=== PATIENT | male | born 1945 | race Caucasian/White ===

== ENCOUNTER 2017-08-15 12:18 | Inpatient (IN) | payer MEDICARE, OTHER ==
[2017-08-15] MEDS ORDERED: ASPIRIN 81 MG TABLET, CHEWABLE PO ONE (12:44)
[2017-08-15 13:07] LABS: ABSOLUTE BASOPHILS # (AUTO) 0.1 10^3/uL (0.0-0.2); ABSOLUTE EOSINOPHILS # (AUTO) 0.2 10^3/uL (0.0-0.6); ABSOLUTE LYMPHOCYTES (AUTO) 2.2 10^3/uL (0.5-4.7); EOSINOPHILS % (AUTO) 1.5 % (0-6); HEMATOCRIT 44.7 % (37.9-51.0); MEAN CORPUSCULAR HEMOGLOBIN 31.5 pg (27.0-33.4); MEAN CORPUSCULAR HGB CONC 35.8 g/dL (32.0-36.0); MEAN CORPUSCULAR VOLUME 88 fl (80-97); MONOCYTES % (AUTO) 6.7 % (3-13); PLATELET COUNT 308 10^3/uL (150-450); RED BLOOD COUNT 5.08 10^6/uL (4.35-5.55); RED CELL DISTRIBUTION WIDTH 12.5 % (11.5-14.0); SEGMENTED NEUTROPHILS % (AUTO) 75.8 % (42-78); TOTAL CELLS COUNTED % (AUTO) 100 %; WHITE BLOOD COUNT 14.5 10^3/uL (4.0-10.5)
[2017-08-15 13:24] LABS: ALANINE AMINOTRANSFERASE 31 U/L (21-72); ALBUMIN 4.5 g/dL (3.5-5.0); ALKALINE PHOSPHATASE 71 U/L (38-126); ANION GAP 12 (5-19); ASPARTATE AMINO TRANSFERASE 24 U/L (17-59); BILIRUBIN,DIRECT 0.3 mg/dL (0.0-0.4); BLOOD UREA NITROGEN 14 mg/dL (7-20); CALCIUM 10.4 mg/dL (8.4-10.2); CARBON DIOXIDE 24 mmol/L (22-30); CHLORIDE 95 mmol/L (98-107); CREATINE KINASE 57 U/L (55-170); GLUCOSE 125 mg/dL (75-110); POTASSIUM 4.2 mmol/L (3.6-5.0); SODIUM 130.8 mmol/L (137-145); TOTAL PROTEIN 7.1 g/dL (6.3-8.2)
[2017-08-15 13:36] LABS: CREATINE KINASE MB 1.51 ng/mL (<4.55)
--- NOTE | 2017-08-15 13:36 | RADIOLOGY REPORT (SQ) ---
EXAM DESCRIPTION: CHEST SINGLE VIEW COMPLETED DATE/TIME: 08/15/2017 1:26 pm REASON FOR STUDY: palpitations COMPARISON: None. EXAM PARAMETERS: NUMBER OF VIEWS: One view. TECHNIQUE: Single frontal radiographic view of the chest acquired. RADIATION DOSE: NA LIMITATIONS: None. FINDINGS: LUNGS AND PLEURA: No opacities, masses or pneumothorax. No pleural effusion. MEDIASTINUM AND HILAR STRUCTURES: No masses. Contour normal. HEART AND VASCULAR STRUCTURES: Heart normal in size. Normal vasculature. BONES: No acute findings. HARDWARE: None in the chest. OTHER: No other significant finding. IMPRESSION: NO ACUTE RADIOGRAPHIC FINDING IN THE CHEST. TECHNICAL DOCUMENTATION: JOB ID: [id number] [employer]- All Rights Reserved
[2017-08-15 13:37] LABS: TROPONIN I < 0.012 ng/mL
[2017-08-15] MEDS ORDERED: DILTIAZEM HCL INJ 25 MG/5 ML VIAL IV ONE (13:51)
[2017-08-15 14:34] LABS: APPEARANCE,URINE CLEAR; BILIRUBIN,URINE NEGATIVE (NEGATIVE); COLOR,URINE STRAW; GLUCOSE, URINE NEGATIVE (NEGATIVE); KETONES,URINE NEGATIVE (NEGATIVE); LEUKOCYTE ESTERASE,URINE NEGATIVE (NEGATIVE); NITRITE,URINE NEGATIVE (NEGATIVE); PROTEIN,URINE NEGATIVE (NEGATIVE); URINE SPECIFIC GRAVITY 1.004; UROBILINOGEN,URINE NEGATIVE mg/dL (<2.0)
--- NOTE | 2017-08-15 14:36 | ER Document Report ---
ED General - General Chief Complaint: Chest Pain Stated Complaint: CHEST PAIN Time Seen by Provider: 08/15/17 13:42 - HPI Patient complains to provider of: Fluttering in chest/chest pain Onset: Just prior to arrival Onset/Duration: Sudden Quality of pain: Pressure Severity: Mild Associated symptoms: None Exacerbated by: Denies Relieved by: Denies Similar symptoms previously: No - States he has had this in the past but never lasted never got looked at Recently seen / treated by doctor: Yes - Placed on Cipro for UTI lisinopril for htn and Flomax for BPH recently - Related Data Allergies/Adverse Reactions: No Known Allergies Allergy (Unverified 08/15/17 13:35) Past Medical History - General Information source: Patient, Relative - Social History Smoking Status: Current Some Day Smoker Chew tobacco use (# tins/day): No Smoking Education Provided: Yes Frequency of alcohol use: Rare - every 6 months Drug Abuse: None Lives with: Family Family History: Hypertension Patient has suicidal ideation: No Patient has homicidal ideation: No - Past Medical History Cardiac Medical History: Reports: Hx Hypertension Pulmonary Medical History: Reports: None EENT Medical History: Reports: None Neurological Medical History: Reports: None Endocrine Medical History: Reports: None Renal/ Medical History: Reports: None. Denies: Hx Peritoneal Dialysis Malignancy Medical History: Reports None GI Medical History: Reports: None Musculoskeltal Medical History: Reports None Skin Medical History: Reports None Psychiatric Medical History: Reports: None Traumatic Medical History: Reports: None Past Surgical History: Reports: None - Immunizations History of Influenza Vaccine for 04/2017 - 09/2017 Season: No History of Pneumococcal Vaccine: No Review of Systems - Review of Systems Constitutional: No symptoms reported EENT: No symptoms reported Cardiovascular: See HPI Respiratory: No symptoms reported Gastrointestinal: No symptoms reported Genitourinary: No symptoms reported Male Genitourinary: No symptoms reported Musculoskeletal: No symptoms reported Skin: No symptoms reported Hematologic/Lymphatic: No symptoms reported Neurological/Psychological: No symptoms reported Physical Exam - Vital signs Vitals: Pulse Ox 98 08/15/17 12:45 Heart rate 132 irregular - Notes Notes: PHYSICAL EXAMINATION: GENERAL: Well-appearing, well-nourished and in no acute distress. HEAD: Atraumatic, normocephalic. EYES: Pupils equal round and reactive to light, extraocular movements intact, sclera anicteric, conjunctiva are normal. ENT: Nares patent, oropharynx clear without exudates. Moist mucous membranes. NECK: Normal range of motion, supple without lymphadenopathy LUNGS: Breath sounds clear to auscultation bilaterally and equal. No wheezes rales or rhonchi. HEART: Tacky and irregularly irregular ABDOMEN: Soft, nontender, nondistended abdomen. No guarding, no rebound. No masses appreciated. Musculoskeletal: Normal range of motion, no pitting or edema. No cyanosis. NEUROLOGICAL: Cranial nerves grossly intact. Normal speech, normal gait. Normal sensory, motor exams PSYCH: Normal mood, normal affect. SKIN: Warm, Dry, normal turgor, no rashes or lesions noted. Course - Vital Signs Vital signs: Temp Pulse Resp BP Pulse Ox 18 98 08/15/17 12:48 08/15/17 12:45 - Laboratory Result Diagrams: 08/15/17 12:41 08/15/17 12:41 Laboratory results interpreted by me: 08/15/17 08/15/17 08/15/17 12:41 12:41 14:05 WBC 14.5 H Absolute Neutrophils 11.0 H Sodium 130.8 L Chloride 95 L Glucose 125 H Calcium 10.4 H Urine Blood SMALL H Discharge - Discharge Clinical Impression: Afib Condition: Stable Disposition: ADMITTED INPATIENT Admitting Provider: Hospitalist - Dr. López Unit Admitted: [facility]
[2017-08-15] MEDS ORDERED: DILTIAZEM HCL/D5W 125 MG/125 ML RTUINJ IV ONE (15:28)
[2017-08-15] MEDS ORDERED: NICOTINE 14 MG/24 HR PATCH.TD24 TD ONE (16:05)
[2017-08-15] MEDS ORDERED: ACETAMINOPHEN 325 MG TABLET PO PRN (16:23)
[2017-08-15] MEDS ORDERED: ONDANSETRON HCL INJ/PF 4 MG/2 ML SDV IV PRN (16:23)
[2017-08-15] MEDS ORDERED: IPRATROPIUM/ALBUTEROL 0.5-2.5 MG/3 ML AMPUL NEB PRN (16:23)
[2017-08-15] MEDS ORDERED: ONDANSETRON 4 MG TAB.RAPDIS PO PRN (16:23)
[2017-08-15] MEDS ORDERED: DILTIAZEM HCL/D5W 125 MG/125 ML RTUINJ IV PRN (16:29)
--- NOTE | 2017-08-15 17:20 | PDOC H&P ---
History of Present Illness Admission Date/PCP: 08/15/17 16:22 MAUDE VENTURA PA-C Patient complains of: Palpitations History of Present Illness: DAMIAN PALACIO is a 72 year old male who has no previous history of atrial fibrillation who reports that over the last year he has had intermittent episodes of tachycardia and palpitations. Patient reports that these would last for short period of time and dissipate on their own. Last week he presented to his primary care doctor with dysuria and was found to have pyuria suggestive of either UTI or prostatitis. Reports that today he has had significant palpitations and tachycardia. The patient presented emergency room and was found to have atrial fibrillation with rapid ventricular rate. Patient also reports that he has had the pyuria and was started on Cipro. He is concerned that possibly the Cipro was the cause for his palpitations. He denies having any chest pain. Denies any orthopnea or PND. Past Medical History Cardiac Medical History: Reports: Hypertension Pulmonary Medical History: Reports: None EENT Medical History: Reports: None Neurological Medical History: Reports: None Endocrine Medical History: Reports: None Renal/ Medical History: Reports: None Malignancy Medical History: Reports: None GI Medical History: Reports: None Musculoskeltal Medical History: Reports: None Skin Medical History: Reports: None Psychiatric Medical History: Reports: None Traumatic Medical History: Reports: None Past Surgical History Past Surgical History: Reports: None Social History Information Source: Patient Lives with: Spouse/Significant other Smoking Status: Current Some Day Smoker Frequency of Alcohol Use: None Hx Recreational Drug Use: No Drugs: None Hx Prescription Drug Abuse: No - Advance Directive Resuscitation Status: Full Code Family History Family History: Hypertension Family History: Father at age 75 and had hemophilia. Mother at age 99 and had coronary artery disease. Parental Family History Reviewed: Yes Children Family History Reviewed: No Sibling(s) Family History Reviewed.: No Medication/Allergy Home Medications: Lisinopril [Prinivil 10 mg Tablet] 20 mg PO DAILY 08/15/17 Tamsulosin HCl [Flomax 0.4 mg Cap.sr] 0.4 mg PO DAILY 08/15/17 Allergies/Adverse Reactions: No Known Allergies Allergy (Unverified 08/15/17 13:35) Review of Systems Constitutional: ABSENT: chills, fever(s), headache(s), weight gain, weight loss Eyes: ABSENT: visual disturbances Ears: ABSENT: hearing changes Cardiovascular: PRESENT: dyspnea on exertion, palpitations. ABSENT: chest pain , edema, orthropnea Respiratory: ABSENT: cough, hemoptysis Gastrointestinal: ABSENT: abdominal pain, constipation, diarrhea, hematemesis, hematochezia, nausea, vomiting Genitourinary: PRESENT: dysuria. ABSENT: hematuria Musculoskeletal: ABSENT: joint swelling Integumentary: ABSENT: rash, wounds Neurological: ABSENT: abnormal gait, abnormal speech, confusion, dizziness, focal weakness, syncope Psychiatric: ABSENT: anxiety, depression Endocrine: ABSENT: cold intolerance, heat intolerance, polydipsia, polyuria Hematologic/Lymphatic: ABSENT: easy bleeding, easy bruising Physical Exam Vital Signs: Temp Pulse Resp BP Pulse Ox 18 98 08/15/17 12:48 08/15/17 12:45 General appearance: PRESENT: no acute distress, well-developed, well-nourished Head exam: PRESENT: atraumatic, normocephalic Eye exam: PRESENT: conjunctiva pink, EOMI, PERRLA. ABSENT: scleral icterus Ear exam: PRESENT: normal external ear exam Mouth exam: PRESENT: moist, tongue midline Neck exam: ABSENT: carotid bruit, JVD, lymphadenopathy, thyromegaly Respiratory exam: PRESENT: clear to auscultation estrella. ABSENT: rales, rhonchi, wheezes Cardiovascular exam: PRESENT: irregular rhythm. ABSENT: diastolic murmur, rubs , systolic murmur GI/Abdominal exam: PRESENT: normal bowel sounds, soft. ABSENT: distended, guarding, mass, organolmegaly, rebound, tenderness Rectal exam: PRESENT: deferred Extremities exam: ABSENT: calf tenderness, clubbing, pedal edema Neurological exam: PRESENT: alert, awake, oriented to person, oriented to place , oriented to time, oriented to situation, CN II-XII grossly intact. ABSENT: motor sensory deficit Psychiatric exam: PRESENT: appropriate affect Skin exam: PRESENT: dry, intact, warm. ABSENT: cyanosis, rash Results Impressions: Chest X-Ray 08/15/17 12:44 IMPRESSION: NO ACUTE RADIOGRAPHIC FINDING IN THE CHEST. Assessment & Plan - Diagnosis (1) Afib Is this a current diagnosis for this admission?: Yes Plan: The patient most likely has been having intermittent atrial fibrillation by his report. We will continue with diltiazem drip. The patient will have serial cardiac enzymes to make certain he has not had an acute cardiac event although I doubt that. We will check thyroids to make certain that is not the cause. The patient was concerned that it possibly be related to the Cipro but unlikely. (2) Hypertension Is this a current diagnosis for this admission?: Yes Plan: Patient normally is on lisinopril 20 mg a day but we will hold that since we are putting him on diltiazem. (3) Benign prostatic hyperplasia Is this a current diagnosis for this admission?: Yes Plan: We will continue with the Flomax. (4) Prostatitis Is this a current diagnosis for this admission?: Yes Plan: Will start Bactrim. He is hesitant to take Cipro anymore. - Time Time Spent: 50 to 70 Minutes - Inpatient Certification Medical Necessity: Need Close Monitoring Due to Risk of Patient Decompensation - Plan Summary Plan Summary: We will admit as an observation. I anticipate that he will convert by morning and can be discharged home tomorrow.
[2017-08-15 17:47] LABS: CREATINE KINASE MB 1.39 ng/mL (<4.55)
[2017-08-15 17:48] LABS: TROPONIN I 0.034 ng/mL
[2017-08-15] MEDS: SULFAMETHOXAZOLE/TRIMETHOPRIM 800-160 MG TABLET PO SCH (19:41)
--- NOTE | 2017-08-15 22:17 | EKG REPORT ---
SEVERITY:- ABNORMAL ECG - ATRIAL FIBRILLATION REPOL ABNRM SUGGESTS ISCHEMIA, DIFFUSE LEADS BORDERLINE PROLONGED QT INTERVAL : Confirmed by: Abdelrahman Black 15-Aug-2017 22:16:57
[2017-08-15] MEDS: FAMOTIDINE 20 MG TABLET PO SCH (22:37)
[2017-08-15 23:11] LABS: CREATINE KINASE MB 1.07 ng/mL (<4.55); TROPONIN I 0.022 ng/mL
[2017-08-16 05:30] LABS: HEMATOCRIT 41.9 % (37.9-51.0); HEMOGLOBIN 14.7 g/dL (13.5-17.0); MEAN CORPUSCULAR HEMOGLOBIN 31.2 pg (27.0-33.4); MEAN CORPUSCULAR HGB CONC 35.2 g/dL (32.0-36.0); MEAN CORPUSCULAR VOLUME 89 fl (80-97); PLATELET COUNT 278 10^3/uL (150-450); RED BLOOD COUNT 4.72 10^6/uL (4.35-5.55); RED CELL DISTRIBUTION WIDTH 12.4 % (11.5-14.0); WHITE BLOOD COUNT 14.8 10^3/uL (4.0-10.5)
[2017-08-16 05:58] LABS: ANION GAP 11 (5-19); BLOOD UREA NITROGEN 23 mg/dL (7-20); CALCIUM 9.7 mg/dL (8.4-10.2); CARBON DIOXIDE 22 mmol/L (22-30); CHLORIDE 100 mmol/L (98-107); CREATINE KINASE 38 U/L (55-170); GLUCOSE 104 mg/dL (75-110); SODIUM 133.2 mmol/L (137-145)
[2017-08-16 06:08] LABS: CREATINE KINASE MB 0.96 ng/mL (<4.55); TROPONIN I 0.014 ng/mL
[2017-08-16] MEDS: ENOXAPARIN SODIUM INJ 40 MG/0.4 ML DISP.SYRIN SUBCUT SCH (09:13)
[2017-08-16] MEDS: NICOTINE 14 MG/24 HR PATCH.TD24 TD SCH (09:14)
[2017-08-16] MEDS: SULFAMETHOXAZOLE/TRIMETHOPRIM 800-160 MG TABLET PO SCH ×2 (09:14→17:48)
[2017-08-16] MEDS: FAMOTIDINE 20 MG TABLET PO SCH ×2 (09:14→21:23)
[2017-08-16] MEDS: DILTIAZEM HCL 120 MG CAP.SR.24H PO SCH (09:45)
[2017-08-16] MEDS: NORMAL SALINE 1000 ML 1,000 ML IV PRN ×2 (10:46→18:24)
--- NOTE | 2017-08-16 10:59 | PDOC PROGRESS REPORT ---
Subjective Progress Note for:: 08/16/17 Subjective:: Denies any complaints Reason For Visit: AFIB,ACUTE RENAL FAILURE Physical Exam Vital Signs: Temp Pulse Resp BP Pulse Ox 97.8 F 77 21 H 133/55 H 93 08/16/17 07:56 08/16/17 08:00 08/16/17 07:56 08/16/17 08:01 08/16/17 07:56 General appearance: PRESENT: no acute distress Eye exam: PRESENT: conjunctiva pink. ABSENT: scleral icterus Mouth exam: PRESENT: moist, tongue midline Neck exam: ABSENT: JVD Respiratory exam: PRESENT: clear to auscultation estrella. ABSENT: rales, rhonchi, wheezes Cardiovascular exam: PRESENT: RRR. ABSENT: diastolic murmur, rubs, systolic murmur GI/Abdominal exam: PRESENT: normal bowel sounds, soft. ABSENT: distended, guarding, mass, organolmegaly, rebound, tenderness Extremities exam: ABSENT: calf tenderness, clubbing, pedal edema Neurological exam: PRESENT: alert, awake, oriented to person, oriented to place , oriented to time, oriented to situation, CN II-XII grossly intact. ABSENT: motor sensory deficit Psychiatric exam: PRESENT: appropriate affect Skin exam: PRESENT: dry, intact, warm. ABSENT: cyanosis, rash Results Impressions: Chest X-Ray 08/15/17 12:44 IMPRESSION: NO ACUTE RADIOGRAPHIC FINDING IN THE CHEST. Assessment & Plan - Diagnosis (1) Afib Is this a current diagnosis for this admission?: Yes Plan: Patient has converted to normal sinus rhythm. Will DC the Cardizem drip and start on oral Cardizem. (2) Hypertension Is this a current diagnosis for this admission?: Yes Plan: Patient normally is on lisinopril 20 mg a day but we will hold that since we are putting him on diltiazem. (3) Benign prostatic hyperplasia Is this a current diagnosis for this admission?: Yes Plan: We will continue with the Flomax. (4) Prostatitis Is this a current diagnosis for this admission?: Yes Plan: Will continue Bactrim. He is hesitant to take Cipro anymore. (5) Acute renal failure Is this a current diagnosis for this admission?: Yes Plan: We will give IV fluids today and follow his creatinine closely. - Time Time Spent with patient: 25-34 minutes - Inpatient Certification Medical Necessity: Need Close Monitoring Due to Risk of Patient Decompensation, Need For IV Fluids
[2017-08-16] MEDS: ALBUTEROL SULFATE HFA (90 MCG/PUFF) 200 PUFF/8.5 GM MDI IH PRN (13:59)
[2017-08-16] MEDS ORDERED: TAMSULOSIN HCL 0.4 MG CAP.SR.24H PO SCH (22:00)
[2017-08-17] MEDS: NORMAL SALINE 1000 ML 1,000 ML IV PRN (02:38)
[2017-08-17 05:51] LABS: ANION GAP 9 (5-19); BLOOD UREA NITROGEN 18 mg/dL (7-20); CALCIUM 9.4 mg/dL (8.4-10.2); CARBON DIOXIDE 21 mmol/L (22-30); CHLORIDE 105 mmol/L (98-107); GLUCOSE 106 mg/dL (75-110); POTASSIUM 4.7 mmol/L (3.6-5.0); SODIUM 134.5 mmol/L (137-145)
[2017-08-17] MEDS: ALBUTEROL SULFATE HFA (90 MCG/PUFF) 200 PUFF/8.5 GM MDI IH PRN (07:24)
[2017-08-17] MEDS: FAMOTIDINE 20 MG TABLET PO SCH (09:12)
[2017-08-17] MEDS: DILTIAZEM HCL 120 MG CAP.SR.24H PO SCH (09:12)
[2017-08-17] MEDS: SULFAMETHOXAZOLE/TRIMETHOPRIM 800-160 MG TABLET PO SCH (09:12)
[2017-08-17] MEDS: ENOXAPARIN SODIUM INJ 40 MG/0.4 ML DISP.SYRIN SUBCUT SCH (09:13)
[2017-08-17] MEDS: NICOTINE 14 MG/24 HR PATCH.TD24 TD SCH (09:13)
[2017-08-17 10:12] VITALS: BP 120/62
--- NOTE | 2017-08-17 12:27 | PDOC DISCHARGE SUMMARY ---
General - Admit/Disc Date/PCP Admission Date/Primary Care Provider: 08/16/17 09:29 MAUDE VENTURA PA-C Discharge Date: 08/17/17 - Discharge Diagnosis (1) Afib Is this a current diagnosis for this admission?: Yes Summary: Currently in normal sinus rhythm. (2) Hypertension Is this a current diagnosis for this admission?: Yes Summary: Blood pressure medications were changed from lisinopril to diltiazem given his atrial fibrillation. (3) Benign prostatic hyperplasia Is this a current diagnosis for this admission?: Yes (4) Prostatitis Is this a current diagnosis for this admission?: Yes Summary: We will be treated with 1 months worth of Bactrim. (5) Acute renal failure Is this a current diagnosis for this admission?: Yes Summary: Resolved with IV fluids. - Additional Information Resuscitation Status: Full Code Discharge Diet: Cardiac Discharge Activity: Activity As Tolerated Prescriptions: Diltiazem HCl [Cardizem Cd 120 mg Capsule] 120 mg PO DAILY #30 cap.sr.24h Sulfamethoxazole/Trimethoprim [Septra-Ds 800-160 mg Tablet] 1 tab PO BID #60 tablet Home Medications: Tamsulosin HCl [Flomax 0.4 mg Cap.sr] 0.4 mg PO DAILY 08/15/17 Diltiazem HCl [Cardizem Cd 120 mg Capsule] 120 mg PO DAILY #30 cap.sr.24h Nicotine [Nicoderm 14 mg/24 Hr Transdermal Patch] 1 each TD DAILY patch.td24 Sulfamethoxazole/Trimethoprim [Septra-Ds 800-160 mg Tablet] 1 tab PO BID #60 tablet 08/17/17 History of Present Illness History of Present Illness: DAMIAN PALACIO is a 72 year old male who has no previous history of atrial fibrillation who reports that over the last year he has had intermittent episodes of tachycardia and palpitations. Patient reports that these would last for short period of time and dissipate on their own. Last week he presented to his primary care doctor with dysuria and was found to have pyuria suggestive of either UTI or prostatitis. Reports that today he has had significant palpitations and tachycardia. The patient presented emergency room and was found to have atrial fibrillation with rapid ventricular rate. Patient also reports that he has had the pyuria and was started on Cipro. He is concerned that possibly the Cipro was the cause for his palpitations. He denies having any chest pain. Denies any orthopnea or PND. Hospital Course Hospital Course: 72-year-old male who presented with palpitations and was found to have H fibrillation with rapid ventricular rate. He was started on diltiazem IV and overnight converted to normal sinus rhythm. Since that time the patient's rhythm has remained in sinus. He was changed from IV diltiazem to p.o. diltiazem. He previously had been on lisinopril for blood pressure control. Patient also had an elevation in his creatinine and he was given IV fluids and had resolution of the acute renal failure. The patient also had a prostatitis and had been taking Cipro prior to presentation and was changed over to Bactrim DS 1 p.o. twice daily for 30 days. The patient is doing well with no further palpitations or H fibrillation was felt that he was stable for discharged home. His chads score is low and he will not be sent home on anything but aspirin for anticoagulation. Physical Exam Vital Signs: Temp Pulse Resp BP Pulse Ox 98.4 F 83 18 120/62 97 08/17/17 10:10 08/17/17 10:10 08/17/17 10:10 08/17/17 10:10 08/17/17 10:10 Intake & Output 08/16/17 08/17/17 08/18/17 06:59 06:59 06:59 Intake Total 4138 Output Total 1100 Balance 3038 Weight 74.7 kg General appearance: PRESENT: no acute distress Eye exam: PRESENT: conjunctiva pink. ABSENT: scleral icterus Mouth exam: PRESENT: moist, tongue midline Neck exam: ABSENT: JVD Respiratory exam: PRESENT: clear to auscultation estrella. ABSENT: rales, rhonchi, wheezes Cardiovascular exam: PRESENT: RRR. ABSENT: diastolic murmur, rubs, systolic murmur GI/Abdominal exam: PRESENT: normal bowel sounds, soft. ABSENT: distended, guarding, mass, organolmegaly, rebound, tenderness Extremities exam: ABSENT: calf tenderness, clubbing, pedal edema Neurological exam: PRESENT: alert, awake, oriented to person, oriented to place , oriented to time, oriented to situation, CN II-XII grossly intact. ABSENT: motor sensory deficit Skin exam: PRESENT: dry, intact, warm. ABSENT: cyanosis, rash Results Laboratory Results: 08/17/17 04:52 08/17/17 04:52 Sodium 134.5 L Potassium 4.7 Chloride 105 Carbon Dioxide 21 L Anion Gap 9 BUN 18 Creatinine 1.23 Est GFR ( Amer) > 60 Est GFR (Non-Af Amer) 58 L Glucose 106 Calcium 9.4 Impressions: Chest X-Ray 08/15/17 12:44 IMPRESSION: NO ACUTE RADIOGRAPHIC FINDING IN THE CHEST. Qualifiers PATEINT BEING DISCHARGED WITH ANY OF THE FOLLOWING DIAGNOSIS?: No Plan Discharge Plan: Patient is discharged to home. Follow-up with primary care in 2 weeks. Time Spent: Greater than 30 Minutes
== END 2017-08-17 10:32 | disposition home or self-care (01) | DRG 309 ==
LOC: ER 12:18 → EH 16:22 → INTOOBSV 16:22 → 3N 20:56 → OBSVTOIN 08-16 09:29
PROVIDERS: ADMIT Internal Medicine; ATTEND Internal Medicine
DX: I48.91 Unspecified atrial fibrillation (principal); N17.9 Acute kidney failure, unspecified; I10 Essential (primary) hypertension; N41.9 Inflammatory disease of prostate, unspecified; N40.0 Benign prostatic hyperplasia without lower urinary tract symptoms; F17.210 Nicotine dependence, cigarettes, uncomplicated
CPT/HCPCS: 36415; 71045; 80048; 80053; 81001; 82550; 82553; 83735; 84443; 84484; 85025; 85027; 93005; 93010; 96374; 99285; G0378; J1650; J3490; J7030; J7620